=== PATIENT | female | born 1960 | race African-American/Black ===

== ENCOUNTER 2020-12-11 18:03 | Emergency (ER) | payer OTHER ==
[2020-12-11 18:14] VITALS: BP 139/77; PULSE 85; BMI 33.4
[2020-12-11] MEDS ORDERED: DIPHTH,PERTUSS(ACELL),TET 0.5 ML DISP.SYRIN IM ONE ×2 (19:48→19:49)
[2020-12-11] MEDS ORDERED: BACITRACIN 15 GM TUBE TOPICAL OINTMENT ONE (19:49)
== END 2020-12-11 20:09 | disposition home or self-care (01) ==
LOC: JER 18:03
PROC: 3E0234Z Introduction of Serum, Toxoid and Vaccine into Muscle, Percutaneous Approach (ICD-10-PCS; principal; 2020-12-11)
DX: S61.452A Open bite of left hand, initial encounter (principal)
CPT/HCPCS: 90715; 99284-25